=== PATIENT | female | born 1980 | race African-American/Black ===

== ENCOUNTER 2019-09-07 20:55 | Emergency (ER) | payer OTHER ==
[~2019-09-07] VITALS: Ht 185.4 cm; Wt 136.1 kg
[~2019-09-07 20:55] MED LIST: ACETAMINOPHEN-1 EAC1 PO; APAP500 PO; COLACE 100 MG100 MG PO; COMPAZINE10 MG PO; DERMOPLAST SPRA56 ML; FLEXERIL PO; HYDROCORTISONE30 G9 TOP; IBUPROFEN 800800 M1 PO; IRON325 PO; LANOLIN56 GM; LORTAB 5 MG/5001 TAB PO; MACROBID 100 M100 M1 PO; NAPROSYN500 MG PO; NOHOMEMEDICATIONS; NORFLEX100 MG PO; PENICILLIN VK500 M1 PO; TUCKS MEDICATE1 EAC1; VEETIDS 250MG250 M1 PO
[2019-09-07] MEDS ORDERED: ADVIL200 M1 (21:09)
[2019-09-07 22:30] VITALS: BP 132/88
[2019-09-07] MEDS ORDERED: MOBIC15 MG PO (22:39)
[2019-09-07] MEDS ORDERED: CYCLOBENZAPRINE5 MG PO (22:54)
== END 2019-09-07 22:40 | disposition home or self-care (01) ==
LOC: ER 20:55
DX: S39.012A Strain of muscle, fascia and tendon of lower back, initial encounter (principal); V49.88XA Car occupant (driver) (passenger) injured in other specified transport accidents, initial encounter; Y93.89 Activity, other specified; Y92.413 State road as the place of occurrence of the external cause; Y99.9 Unspecified external cause status